=== PATIENT | male | born 1970 ===

== ENCOUNTER → 2018-01-14 | Emergency (ER) | payer OTHER ==
[~2018-01-14] VITALS: Ht 165.1 cm; Wt 79.4 kg
[~2018-01-14] MED LIST: CIPRO500 MG; FOLIC ACID1 MG; HUMALOG MIX 75/23 ML; METROTEXATE; PRENISONA; TRAMADOL HCL-AP1 TAB PO
== END | disposition home or self-care (01) ==
LOC: ER 13:07
DX: K52.89 Other specified noninfective gastroenteritis and colitis (principal); K57.30 Diverticulosis of large intestine without perforation or abscess without bleeding